=== PATIENT | female | born 1970 | race Caucasian/White ===

== ENCOUNTER 2018-01-10 05:25 | Inpatient (IN) | payer MEDICAID ==
[~2018-01-10] VITALS: Ht 162.6 cm; Wt 68.0 kg
[2018-01-10] MEDS ORDERED: MORPHINE SULFATE 4 MG/ML CPJ (NOT FOR IM USE) IV STA (06:35)
[2018-01-10] MEDS ORDERED: ONDANSETRON HCL 4MG/2ML INJ IV STA (06:35)
[2018-01-10 07:18] LABS: BASOPHILS % 0.2 % (0.0-2.0); EOSINOPHILS % 0.2 % (0.0-5.0); HEMATOCRIT. 36.9 % (36.0-48.0); HEMOGLOBIN. 11.8 g/dL (12.0-16.0); LYMPHOCYTES % 9.9 % (20.0-50.0); MEAN CORPUSCULAR VOLUME 74.9 fL (81.0-99.0); MEAN PLATELET VOLUME 8.6 fl (7.4-10.4); MONOCYTES % 9.5 % (2.0-8.0); NEUTROPHILS % 80.2 % (40.0-76.0); PLATELET 176 x1000/uL (130-400); RED BLOOD CELL COUNT 4.93 mill/uL (4.2-5.4); RED CELL DISTRIBUTION WIDTH 21.2 % (11.6-14.6)
[2018-01-10 07:20] LABS: CHLORIDE 100 mEq/L (98-107)
[2018-01-10 07:27] LABS: INR 1.1; PROTHROMBIN TIME 10.8 sec (9.1-11.1)
[2018-01-10] MEDS ORDERED: KCL 10MEQ/50ML PREMIX 50 ML IV ONE (08:15)
[2018-01-10] MEDS ORDERED: POTASSIUM CHLORIDE 20MEQ TABLET SR PO ONE (08:15)
[2018-01-10] MEDS ORDERED: IOHEXOL-300 100 ML BOTTLE ONE (10:01)
[2018-01-10 10:35] LABS: CLARITY URINE CLEAR (CLEAR); COLOR URINE YELLOW (YELLOW); KETONES URINE NEGATIVE (NEGATIVE); LEUKOCYTE ESTERASE URINE 1+ (NEGATIVE); NITRITE URINE POSITIVE (NEGATIVE); OCCULT BLOOD URINE TRACE (NEGATIVE); PROTEIN URINE 1+ (NEGATIVE); SPECIFIC GRAVITY URINE 1.063 (1.005-1.030)
[2018-01-10] MEDS ORDERED: CEFTRIAXONE 1 G PREMIX 50 ML IV ONE (11:00)
[2018-01-10 12:00] VITALS: BP 135/85
[2018-01-10 12:42] VITALS: BP 135/85
[2018-01-10] MEDS ORDERED: LORAZEPAM 0.5MG TABLET PO PRN (13:00)
[2018-01-10] MEDS ORDERED: MORPHINE SULFATE 2 MG/ML CPJ (NOT FOR IM USE) IV PRN (13:00)
[2018-01-10] MEDS ORDERED: CLONIDINE 0.1MG TABLET PO PRN (13:00)
[2018-01-10] MEDS ORDERED: ACETAMINOPHEN 325MG TABLET PO PRN (13:00)
[2018-01-10] MEDS ORDERED: ONDANSETRON HCL 4MG/2ML INJ IV PRN (13:00)
[2018-01-10] MEDS: MORPHINE SULFATE 4 MG/ML CPJ (NOT FOR IM USE) IV PRN ×2 (14:06→20:18)
[2018-01-10] MEDS ORDERED: MVI, ADULT NO.1 10 ML, FOLIC ACID 1 MG, THIAMINE HCL 100 MG in SODIUM CHLORIDE 0.9% 1,0... IV NR ×4 (15:00)
[2018-01-10 15:13] LABS: *BARBITURATES SCREEN URINE NEGATIVE (NEGATIVE); *BENZODIAZEPINES SCREEN URINE NEGATIVE (NEGATIVE); *COCAINE SCREEN URINE NEGATIVE (NEGATIVE)
[2018-01-10 15:14] LABS: CANNABINOID URINE SCREEN NEGATIVE (NEGATIVE); METHADONE URINE SCREEN NEGATIVE (NEGATIVE); PHENCYCLIDINE URINE SCREEN NEGATIVE (NEGATIVE)
[2018-01-10 16:00] VITALS: BP 112/65
[2018-01-10] MEDS: CHLORDIAZEPOXIDE 25MG CAPSULE PO SCH ×2 (16:30→23:15)
[2018-01-10] MEDS: POTASSIUM CHLORIDE 20MEQ TABLET SR PO SCH (16:30)
[2018-01-10] MEDS: SODIUM CHLORIDE 0.9% INJ 3ML FLUSH IVF SCH ×2 (16:30→22:00)
[2018-01-10 16:55] LABS: *AMPHETAMINES SCREEN URINE PRESUMTIVE POSITIVE (NEGATIVE); OPIATES URINE SCREEN PRESUMTIVE POSITIVE (NEGATIVE)
[2018-01-10] MEDS ORDERED: GENTAMICIN SULFATE 140 MG in SODIUM CHLORIDE 0.9% 100 ML IV NR (18:30)
[2018-01-10] MEDS: AMPICILLIN 1,000 MG in SODIUM CHLORIDE 0.9% 50 ML IV SCH (19:19)
[2018-01-10 20:00] VITALS: BP 94/81
[2018-01-10 21:31] LABS: CHLORIDE 102 mEq/L (98-107)
[2018-01-10 21:36] LABS: AMYLASE 28 IU/L (25-115)
[2018-01-10 21:37] LABS: PHOSPHORUS 2.5 mg/dL (2.5-4.9)
[2018-01-10 21:40] LABS: CREATINE KINASE 23 IU/L (26-192)
[2018-01-10 22:13] LABS: HEPATITIS B SURFACE ANTIGEN NEGATIVE
[2018-01-10 22:41] LABS: HEPATITIS B CORE AB IGM NEGATIVE
[2018-01-10 22:43] LABS: HEPATITIS A AB IGM NEGATIVE (NEGATIVE)
[2018-01-11] VITALS: BP 103/57
[2018-01-11 04:00] VITALS: BP 102/59
[2018-01-11] MEDS: AMPICILLIN 1,000 MG in SODIUM CHLORIDE 0.9% 50 ML IV SCH ×4 (05:05→17:18)
[2018-01-11] MEDS: CHLORDIAZEPOXIDE 25MG CAPSULE PO SCH ×3 (05:06→21:29)
[2018-01-11] MEDS: GENTAMICIN 120MG PREMIX 100 ML IV SCH ×2 (05:07→11:08)
[2018-01-11] MEDS: SODIUM CHLORIDE 0.9% INJ 3ML FLUSH IVF SCH ×3 (06:00→21:30)
[2018-01-11 07:10] LABS: BASOPHILS % 0.2 % (0.0-2.0); EOSINOPHILS % 0.5 % (0.0-5.0); HEMATOCRIT. 28.6 % (36.0-48.0); HEMOGLOBIN. 9.3 g/dL (12.0-16.0); LYMPHOCYTES % 16.4 % (20.0-50.0); MEAN CORPUSCULAR HEMOGLOBIN 24.2 pg (28.0-32.0); MEAN CORPUSCULAR VOLUME 74.2 fL (81.0-99.0); MEAN PLATELET VOLUME 8.6 fl (7.4-10.4); MONOCYTES % 11.5 % (2.0-8.0); NEUTROPHILS % 71.4 % (40.0-76.0); PLATELET 146 x1000/uL (130-400); RED BLOOD CELL COUNT 3.85 mill/uL (4.2-5.4); RED CELL DISTRIBUTION WIDTH 20.7 % (11.6-14.6)
[2018-01-11 08:16] VITALS: BP 100/62
[2018-01-11] MEDS ORDERED: CEFEPIME 1,000 MG in DEXTROSE 5% WATER 50 ML IV SCH (09:00)
[2018-01-11] MEDS: POTASSIUM CHLORIDE 20MEQ TABLET SR PO SCH ×2 (09:01→17:07)
[2018-01-11 09:22] LABS: CHLORIDE 101 mEq/L (98-107)
[2018-01-11 09:54] LABS: PHOSPHORUS 2.3 mg/dL (2.5-4.9)
[2018-01-11] MEDS: TRAMADOL 50MG TABLET PO PRN (11:18)
[2018-01-11 12:00] VITALS: BP 104/60
[2018-01-11] MEDS ORDERED: MAGNESIUM SULFATE 2 GM in DEXTROSE 5% WATER 50 ML IV NR (13:00)
[2018-01-11] MEDS ORDERED: SODIUM PHOS,M-BASIC-D-BASIC 15 MM in DEXT 5% WATER 245 ML IV NR (15:00)
[2018-01-11 16:00] VITALS: BP 104/60
[2018-01-11] MEDS: MORPHINE SULFATE 4 MG/ML CPJ (NOT FOR IM USE) IV PRN ×2 (17:06→21:34)
[2018-01-11 20:00] VITALS: BP 113/71
[2018-01-12] VITALS: BP 115/75
[2018-01-12] MEDS: GENTAMICIN 120MG PREMIX 100 ML IV SCH ×2 (00:37→09:34)
[2018-01-12] MEDS: AMPICILLIN 1,000 MG in SODIUM CHLORIDE 0.9% 50 ML IV SCH ×3 (00:38→12:30)
[2018-01-12 04:00] VITALS: BP 110/69
[2018-01-12] MEDS: SODIUM CHLORIDE 0.9% INJ 3ML FLUSH IVF SCH ×3 (05:40→21:06)
[2018-01-12] MEDS: CHLORDIAZEPOXIDE 25MG CAPSULE PO SCH ×3 (05:40→21:05)
[2018-01-12] MEDS: MORPHINE SULFATE 4 MG/ML CPJ (NOT FOR IM USE) IV PRN (05:46)
[2018-01-12 07:16] LABS: BASOPHILS % 0.3 % (0.0-2.0); EOSINOPHILS % 1.4 % (0.0-5.0); HEMATOCRIT. 31.1 % (36.0-48.0); HEMOGLOBIN. 10.2 g/dL (12.0-16.0); MEAN CORPUSCULAR HEMOGLOBIN 24.3 pg (28.0-32.0); MEAN CORPUSCULAR VOLUME 73.8 fL (81.0-99.0); MEAN PLATELET VOLUME 8.7 fl (7.4-10.4); MONOCYTES % 9.9 % (2.0-8.0); NEUTROPHILS % 66.4 % (40.0-76.0); PLATELET 186 x1000/uL (130-400); RED BLOOD CELL COUNT 4.22 mill/uL (4.2-5.4); RED CELL DISTRIBUTION WIDTH 20.8 % (11.6-14.6)
[2018-01-12 08:00] VITALS: BP 106/61
[2018-01-12 08:30] LABS: CHLORIDE 101 mEq/L (98-107)
[2018-01-12 08:35] LABS: GENTAMICIN RANDOM 1.5 ug/mL
[2018-01-12] MEDS: POTASSIUM CHLORIDE 20MEQ TABLET SR PO SCH (09:34)
[2018-01-12 12:00] VITALS: BP 94/55
[2018-01-12 13:31] LABS: PHOSPHORUS 4.7 mg/dL (2.5-4.9)
[2018-01-12] MEDS: LEVOFLOXACIN 500MG TABLET PO SCH (13:52)
[2018-01-12] MEDS ORDERED: LEVO500T2 PO (15:34)
[2018-01-12 16:00] VITALS: BP 97/57
[2018-01-12 20:00] VITALS: BP 99/59
[2018-01-12] MEDS ORDERED: GENTAMICIN 100MG PREMIX 50 ML IV SCH (21:00)
[2018-01-12] MEDS: TRAMADOL 50MG TABLET PO PRN (21:06)
[2018-01-13] VITALS: BP 104/64
[2018-01-13 04:00] VITALS: BP 93/57
[2018-01-13 05:18] VITALS: BP 93/57
[2018-01-13] MEDS: CHLORDIAZEPOXIDE 25MG CAPSULE PO SCH (05:31)
[2018-01-13] MEDS: TRAMADOL 50MG TABLET PO PRN (05:31)
[2018-01-13] MEDS: SODIUM CHLORIDE 0.9% INJ 3ML FLUSH IVF SCH (06:18)
[2018-01-13 06:47] LABS: BASOPHILS % 0.5 % (0.0-2.0); EOSINOPHILS % 1.6 % (0.0-5.0); HEMOGLOBIN. 10.9 g/dL (12.0-16.0); LYMPHOCYTES % 21.8 % (20.0-50.0); MEAN CORPUSCULAR HEMOGLOBIN 23.9 pg (28.0-32.0); MEAN CORPUSCULAR VOLUME 74.5 fL (81.0-99.0); MEAN PLATELET VOLUME 8.2 fl (7.4-10.4); MONOCYTES % 10.3 % (2.0-8.0); NEUTROPHILS % 65.8 % (40.0-76.0); PLATELET 249 x1000/uL (130-400); RED BLOOD CELL COUNT 4.57 mill/uL (4.2-5.4); RED CELL DISTRIBUTION WIDTH 20.4 % (11.6-14.6)
[2018-01-13 07:54] LABS: CHLORIDE 98 mEq/L (98-107)
[2018-01-13 07:57] LABS: PHOSPHORUS 5.3 mg/dL (2.5-4.9)
[2018-01-13 08:00] VITALS: BP 95/59
[2018-01-13] MEDS: LEVOFLOXACIN 500MG TABLET PO SCH (09:08)
[2018-01-13 12:30] VITALS: BP 95/58
[2018-01-13 12:47] VITALS: BP 95/58
== END 2018-01-13 15:50 | disposition home or self-care (01) | DRG 463 ==
LOC: ER 05:25 → EDBEDREQSVC 09:27 → ENRESERV 09:49 → 6EST 10:51 → EDBEDREQTM 10:53 → EDBEDREQ 10:53 → 7WST 15:26
PROVIDERS: ADMIT Family Medicine Adult Medicine; ATTEND Family Medicine Adult Medicine
DX: N10 Acute pyelonephritis (principal); N17.9 Acute kidney failure, unspecified; E44.0 Moderate protein-calorie malnutrition; K70.9 Alcoholic liver disease, unspecified; E87.6 Hypokalemia; E86.9 Volume depletion, unspecified; Z59.0 Homelessness; F19.10 Other psychoactive substance abuse, uncomplicated; D64.9 Anemia, unspecified; F10.20 Alcohol dependence, uncomplicated; B96.20 Unspecified Escherichia coli [E. coli] as the cause of diseases classified elsewhere; F17.210 Nicotine dependence, cigarettes, uncomplicated; I10 Essential (primary) hypertension; F41.9 Anxiety disorder, unspecified; Z91.81 History of falling; Z90.49 Acquired absence of other specified parts of digestive tract; Z87.440 Personal history of urinary (tract) infections; Z98.891 History of uterine scar from previous surgery; Z80.9 Family history of malignant neoplasm, unspecified; E86.0 Dehydration
CPT/HCPCS: 36415; 71045; 74177; 76770; 80048; 80170; 80305; 82150; 82550; 83735; 84100; 84484; 86705; 86709; 86803; 87077; 87186; 87340; 93970; 96374; 96375; 97162; 99285; C1893; J0290; J0692; J1580; J2270; J2405; J3411; J3475; J3480; J3490; J7030; J7040; J7050; J7060; Q9967

== ENCOUNTER 2018-03-20 00:40 | Emergency (ER) | payer MEDICAID ==
[~2018-03-20] VITALS: Ht 167.6 cm; Wt 68.0 kg
[~2018-03-20 00:40] MED LIST: LEVO500T2 PO
[2018-03-20 05:55] LABS: CLARITY URINE CLEAR (CLEAR); COLOR URINE YELLOW (YELLOW); KETONES URINE NEGATIVE (NEGATIVE); LEUKOCYTE ESTERASE URINE TRACE (NEGATIVE); NITRITE URINE NEGATIVE (NEGATIVE); OCCULT BLOOD URINE NEGATIVE (NEGATIVE); PROTEIN URINE NEGATIVE (NEGATIVE)
[2018-03-20] MEDS ORDERED: SODIUM CHLORIDE 0.9% 1,000 ML IV ONE (06:38)
[2018-03-20] MEDS ORDERED: ONDANSETRON HCL 4MG/2ML INJ IV STA (06:38)
[2018-03-20] MEDS ORDERED: MORPHINE SULFATE 4 MG/ML CPJ (NOT FOR IM USE) IV STA (06:38)
[2018-03-20] MEDS ORDERED: MORPHINE SULFATE 10 MG/ML CPJ IV ONE (07:15)
[2018-03-20 07:42] LABS: BASOPHILS % 0.5 % (0.0-2.0); CHLORIDE 104 mEq/L (98-107); EOSINOPHILS % 2.4 % (0.0-5.0); HEMATOCRIT. 31.6 % (36.0-48.0); HEMOGLOBIN. 9.9 g/dL (12.0-16.0); LYMPHOCYTES % 40.2 % (20.0-50.0); MEAN CORPUSCULAR HEMOGLOBIN 23.6 pg (28.0-32.0); MEAN CORPUSCULAR VOLUME 75.3 fL (81.0-99.0); MEAN PLATELET VOLUME 8.2 fl (7.4-10.4); NEUTROPHILS % 47.9 % (40.0-76.0); PLATELET 179 x1000/uL (130-400); RED BLOOD CELL COUNT 4.19 mill/uL (4.2-5.4); RED CELL DISTRIBUTION WIDTH 18.3 % (11.6-14.6)
[2018-03-20 07:46] LABS: INR 1.1; PROTHROMBIN TIME 10.6 sec (9.1-11.1)
[2018-03-20] MEDS ORDERED: NITROFURANTOIN 100MG M/M CAPSULE PO ONE (08:15)
[2018-03-20 09:47] VITALS: BP 131/70
== END 2018-03-20 09:49 | disposition home or self-care (01) ==
LOC: ER 00:40
DX: N39.0 Urinary tract infection, site not specified (principal); R03.0 Elevated blood-pressure reading, without diagnosis of hypertension
CPT/HCPCS: 36415; 80053; 81003; 81025; 83690; 85025; 85610; 96361; 96374; 96375; 99283; J2270; J2405; J7030

== ENCOUNTER 2019-01-18 11:42 | Emergency (ER) | payer MEDICAID ==
[~2019-01-18] VITALS: Ht 157.5 cm; Wt 61.0 kg
[2019-01-18] MEDS ORDERED: KETOROLAC 30MG/ML VIAL IM ONE (14:15)
[2019-01-18 14:47] VITALS: BP 120/75
== END 2019-01-18 14:47 | disposition home or self-care (01) ==
LOC: ER 11:42
DX: M54.42 Lumbago with sciatica, left side (principal)
CPT/HCPCS: 96372; 99283; J1885